=== PATIENT | male | born 1965 | race Caucasian/White ===

== ENCOUNTER → 2022-04-18 16:17 | Outpatient (BNVA) | payer MEDICARE, SELFPAY | PROVIDERS: PCP Family Medicine; Visit Provider Psychiatry & Neurology Psychiatry | DX: Z79.899 Other long term (current) drug therapy (principal); F41.9 Anxiety disorder, unspecified | CPT/HCPCS: 80053; 80061; 83036; 84443; 85025 ==

== ENCOUNTER → 2022-06-07 15:17 | Outpatient (BNVA) | payer MEDICARE, SELFPAY | PROVIDERS: PCP Family Medicine; Visit Provider Orthopaedic Surgery | DX: S62.636A Displaced fracture of distal phalanx of right little finger, initial encounter for closed fracture (principal); W23.0XXA Caught, crushed, jammed, or pinched between moving objects, initial encounter | CPT/HCPCS: 73130; 99203 ==

== ENCOUNTER 2022-06-09 10:31 | Day surgery (SDC) | payer MEDICARE, SELFPAY ==
[2022-06-09] VITALS (9 sets, daily range): BP systolic 101–129; BP diastolic 60–79; PULSE 44–75; RESP 14–20; TEMP 36.2–36.6; O2SAT 98–100
--- NOTE | 2022-06-09 | XR_ITS ---
WS: [id number] XR finger RT min 2V 97590 REASON FOR EXAM: Fracture right middle finger distal phalanx FINDINGS: Long pin fixation of distal phalangeal fracture of the middle finger. Fracture fragments and surgical appliances are in good position and alignment. XR/XR finger RT min 2V 31960 IMPRESSION: Fixation of right middle finger fracture without abnormality.
[2022-06-09] MEDS: sodium chloride 0.9% 1,000 ML 30 ML IV (11:02)
--- NOTE | 2022-06-09 12:11 | ANES.PREANE2 ---
Pre-Anesthetic Assessment Height/Weight: Height 1.75 m Weight 65.771 kg Temp Pulse Resp BP Pulse Ox O2 Del Method 97.6 F 48 L 16 110/65 100 06/09/22 10:51 06/09/22 10:51 06/09/22 10:51 06/09/22 10:51 06/09/22 10:51 06/09/22 10:51 Preop Diagnosis: Fracture right middle finger distal phalanx, disruption extensor reed Operation Date: 06/09/22 11:40 Proposed Procedures p Pinning of DIP joint and distal phalanx or right long finger:10705,T14.8XXA(Right) - Norris Aparicio MD Familial anesthetic complications: None Was Beta Kristofer taken within 24 hours: N/A Was Clonidine taken within 24 hours: N/A Last intake: Intake Last Liquid Date 06/08/22 Last Liquid Time 23:00 Last Solid Date 06/08/22 Last Solid Time 18:00 Social Tobacco and No alcohol Airway Mallampati: Class III Dentition: false GI Gastroesophageal Reflux Disease Neuropsych Anxiety Anesthetic Plan ASA status: 2 Anesthesia: General Medications/Allergies Home Medications Medication Instructions Recorded Confirmed Last Taken Type cholecalciferol (vitamin D3) 25 25 mcg PO DAILY 02/17/22 06/08/22 05/17/22 History mcg (1,000 unit) capsule clonazepam 1 mg tablet 1 mg PO BID 02/17/22 06/08/22 06/09/22 08:00 History lamotrigine 100 mg tablet 100 mg PO BID 02/17/22 06/08/22 06/09/22 08:00 History amitriptyline 10 mg tablet 10 mg PO DAILY 04/18/22 06/09/22 06/08/22 History cyclobenzaprine 10 mg tablet 10 mg PO TID PRN Spasms 04/18/22 06/09/22 05/30/22 History buspirone 10 mg tablet 10 mg PO TID PRN anxiety 30 days 06/01/22 06/08/22 06/09/22 08:00 Rx #90 tabs sertraline 100 mg tablet 150 mg PO DAILY 30 days #45 tabs 06/01/22 06/08/22 06/08/22 Rx Allergies Allergy/AdvReac Type Severity Reaction Status Date / Time tamsulosin [From Flomax] Allergy ADR-Dizzine Verified 06/09/22 10:41 ss zolpidem [From Ambien] Allergy ADR-Halluci Verified 06/09/22 10:41 nating Current Medications Generic Name Dose Route Start Last Admin Trade Name Freq PRN Reason Stop Dose Admin Sodium Chloride 1,000 mls @ 30 mls/hr 06/09/22 10:45 06/09/22 11:02 Sodium Chloride 0.9% IV 06/10/22 10:44 30 mls/hr .Q24H TATYANA Administration PFSH Anesthesia Medical History Anxiety Psychiatric care Data Anesthesia Cardiac Studies: No Data to Display
--- NOTE | 2022-06-09 12:18 | W.PM.OPSUD ---
Surgery/Procedure H&P Update DATE OF PROCEDURE: June 09, 2022 DATE H&P PERFORMED: 06/07/22 H&P UPDATE INFORMATION: I have reviewed H&P completed within last 30 days PREOP DIAGNOSIS: Fracture right middle finger distal phalanx, disruption extensor reed PLANNED PROCEDURE: Operation Date: 06/09/22 11:40 Proposed Procedures p Pinning of DIP joint and distal phalanx or right long finger:02522,T14.8XXA(Right) - Norris Aparicio MD
[2022-06-09] MEDS: ceFAZolin 2,000 MG in sodium chloride 0.9% (plus) 50 ML 100 MG IV (12:32)
--- NOTE | 2022-06-09 13:04 | PM.OP ---
Operative Report Date of procedure: June 09, 2022 Pre-op diagnosis: Preop Diagnosis Fracture right middle finger distal phalanx, traumatic mallet finger Post-op diagnosis: same Procedure done: Closed reduction and pinning right middle finger distal phalanx and DIP joint Implants: 0.065 K wire Surgeon: Norris Aparicio Anesthesia: General Estimated blood loss (mL): 2 Tourniquet time (min): 0 Condition: stable Disposition: PACU Brief History: The patient is a 57-year-old male who sustained an injury to his right middle finger between 2 large rocks approximately 2 weeks ago. He was seen in the [facility] emergency room where a dorsal wound over his distal interphalangeal joint was healed. He followed up in my clinic where radiographs were reviewed revealing a very displaced fracture of the distal phalanx with 100% volar translation of the distal fragment and flexion across the DIP joint. Eschar was identified over the DIP joint precluding any open surgical procedure. The patient was taken to the operating room for stabilization of the distal interphalangeal fracture and to pinning the DIP joint in extension to obtain healing of the extensor reed Procedure: The patient was taken to the operating room and given a general anesthesia. His right upper extremity was prepped and draped in the usual fashion. The distal phalangeal fracture was held reduced and a 0.065 K wire driven from the tip of the distal phalanx proximally across the fracture maintaining alignment. The digit could then be fully extended and the pin driven further across the distal interphalangeal joint maintaining extension. Intraoperative fluoroscopy showed satisfactory position of the hardware, reduction of the fracture, and extension of the DIP joint. Debridement of the dorsal eschar over the DIP joint was then accomplished. This revealed a wound approximately 8 mm from radial to ulnar with approximately 3 mm distal to proximal separation. Healthy appearing granulation tissue appeared to be underneath and no obvious extension into the distal interphalangeal joint was noted. K wire was cut flush with the skin and advanced slightly with a tamp and mallet beneath the skin. The distal K wire entry site and dorsal wound were covered with Xeroflo, 4 x 4's, and tube gauze. The patient was extubated taken to recovery in stable condition.
[2022-06-09] MEDS: HYDROcodone-acetaminophen 5-325 mg Tablet 1 TAB PO (14:11)
== END 2022-06-09 14:15 | disposition home or self-care (01) ==
PROVIDERS: PCP Family Medicine; Visit Provider Orthopaedic Surgery
PROC: (CPT 28485; principal; 2022-06-09 11:30)
DX: S62.632A Displaced fracture of distal phalanx of right middle finger, initial encounter for closed fracture (principal); W23.0XXA Caught, crushed, jammed, or pinched between moving objects, initial encounter
CPT/HCPCS: 26756; 73140; 76000; C1713; J0690; J2250; J2405; J2704; J3010; J7030

== ENCOUNTER → 2022-06-29 14:02 | Outpatient (BNVA) | payer MEDICARE, SELFPAY | PROVIDERS: PCP Family Medicine; Visit Provider Orthopaedic Surgery | DX: Z98.890 Other specified postprocedural states (principal) | CPT/HCPCS: 73140; 99024 ==

== ENCOUNTER → 2022-07-27 15:33 | Outpatient (BNVA) | payer MEDICARE, SELFPAY | PROVIDERS: PCP Family Medicine; Visit Provider Orthopaedic Surgery | DX: Z98.890 Other specified postprocedural states (principal) | CPT/HCPCS: 73130; 99024 ==

== ENCOUNTER → 2022-08-23 14:37 | Outpatient (BNVA) | payer MEDICARE, SELFPAY | PROVIDERS: PCP Family Medicine; Visit Provider Orthopaedic Surgery | DX: S62.632D Displaced fracture of distal phalanx of right middle finger, subsequent encounter for fracture with routine healing (principal); X58.XXXD Exposure to other specified factors, subsequent encounter | CPT/HCPCS: 73130; 99024 ==

== ENCOUNTER → 2022-09-13 15:52 | Outpatient (BNVA) | payer MEDICARE, SELFPAY | PROVIDERS: PCP Family Medicine; Visit Provider Orthopaedic Surgery | DX: Z98.890 Other specified postprocedural states (principal) | CPT/HCPCS: 20670; 73130 ==

== ENCOUNTER → 2022-10-11 14:59 | Outpatient (BNVA) | payer MEDICARE, SELFPAY | PROVIDERS: PCP Family Medicine; Visit Provider Orthopaedic Surgery | DX: Z98.890 Other specified postprocedural states (principal) | CPT/HCPCS: 73130; 99024; 99213 ==